=== PATIENT | male | born 1980 | race Caucasian/White ===

== ENCOUNTER 2016-11-25 13:05 | Emergency (ER) | payer MEDICAID, OTHER ==
[~2016-11-25] VITALS: Ht 167.6 cm; Wt 70.0 kg
[2016-11-25 13:10] VITALS: BP 141/69
== END 2016-11-25 21:11 | disposition home or self-care (01) ==
LOC: ER 13:10
DX: S52.122A Displaced fracture of head of left radius, initial encounter for closed fracture (principal); W18.30XA Fall on same level, unspecified, initial encounter; Y93.89 Activity, other specified; Y92.89 Other specified places as the place of occurrence of the external cause; Y99.8 Other external cause status
CPT/HCPCS: 29105; 73080; 99284; A4565